=== PATIENT | male | born 1950 | race Caucasian/White ===

== ENCOUNTER → 2020-03-20 | Outpatient (CLI) | payer MEDICARE ==
[~2020-03-20] MED LIST: CHOL200074 PO; LOSA100T2 PO; MELA10TA PO; MULT-658 PO; PRIM50TA34 PO; SILD100T PO; SIMV40TA20 PO
[2020-03-20 13:33] LABS: ALANINE AMINOTRANSFERASE 21 U/L (12-78); ALBUMIN 3.8 g/dL (3.4-5.0); ANION GAP 2 mmol/L (5-15); CALCIUM 9.2 mg/dL (8.5-10.1); CHLORIDE 106 mmol/L (98-107); CREATININE 0.93 mg/dL (0.7-1.3)
[2020-03-20 13:35] LABS: ALKALINE PHOSPHATASE 107 U/L (45-117); BILIRUBIN,TOTAL 0.3 mg/dL (0.2-1.0); TOTAL PROTEIN 7.6 g/dL (6.4-8.2)
== END | disposition home or self-care (01) ==
LOC: STAR 11:34
PROVIDERS: ATTEND Surgery Vascular Surgery
DX: Z01.818 Encounter for other preprocedural examination (principal); K40.90 Unilateral inguinal hernia, without obstruction or gangrene, not specified as recurrent; R94.31 Abnormal electrocardiogram [ECG] [EKG]; Z20.828 Contact with and (suspected) exposure to other viral communicable diseases
CPT/HCPCS: 36415; 80053; 87635; 93005

== ENCOUNTER 2020-03-25 07:51 | Day surgery (SDC) | payer MEDICARE ==
[~2020-03-25] VITALS: Ht 185.4 cm; Wt 84.3 kg
[2020-03-25] MEDS ORDERED: CHLORHEXIDINE 15 ML UDC MM STA (08:57)
[2020-03-25] MEDS ORDERED: LACTATED RINGERS 1,000 ML IV SCH (08:57)
[2020-03-25] MEDS ORDERED: FENTANYL PF 100 MCG/2ML ONE (10:43)
[2020-03-25] MEDS ORDERED: KETOROLAC 30 MG/1 ML ONE ×3 (10:46→11:30)
[2020-03-25] MEDS ORDERED: HYDROmorphone 1 MG/ML, 1ML INJ IVPush PRN (11:00)
[2020-03-25] MEDS ORDERED: DIPHENHYDRAMINE 50 MG/ML, 1ML IVPush PRN (11:00)
[2020-03-25] MEDS ORDERED: hydrALAzine 20 MG/ML, 1ML IV PRN (11:00)
[2020-03-25] MEDS ORDERED: PROMETHAZINE 25 MG/ML, 1ML IVPush PRN (11:00)
[2020-03-25] MEDS ORDERED: FENTANYL PF 100 MCG/2ML IV PRN (11:00)
[2020-03-25] MEDS ORDERED: HALOPERIDOL 5 MG/ML IV PRN (11:00)
[2020-03-25] MEDS ORDERED: MEPERIDINE/PF 25MG/0.5ML IVPush PRN (11:00)
[2020-03-25] MEDS ORDERED: LABETALOL 5MG/ML, 20ML IV PRN (11:00)
[2020-03-25] MEDS ORDERED: HYDROcodone/APAP 7.5-325MG/15ML UDC PO PRN (11:00)
[2020-03-25] MEDS ORDERED: ROCURONIUM 10 MG/ML,10ML ONE (11:08)
[2020-03-25] MEDS ORDERED: PROPOFOL 10 MG/ML, 20ML ONE (11:08)
[2020-03-25] MEDS ORDERED: CEFAZOLIN 1,000 MG ONE (11:08)
[2020-03-25] MEDS ORDERED: DEXAMETHASONE 4 MG/ML, 1ML ONE (11:08)
[2020-03-25] MEDS ORDERED: ONDANSETRON 2MG/ML, 2ML ONE (11:08)
[2020-03-25] MEDS ORDERED: SUCCINYLCHOLINE 20 MG/ML, 10ML ONE (11:08)
[2020-03-25] MEDS ORDERED: BUPIVACAINE/PF 0.5% INFIL ONE (11:19)
[2020-03-25] MEDS ORDERED: BUPIVACAINE/PF 0.5% ONE (13:12)
[2020-03-25] MEDS ORDERED: EPINEPHRINE 1 MG/ML, 1ML ONE (13:12)
== END 2020-03-25 14:10 | disposition home or self-care (01) ==
LOC: OUT 07:51
PROVIDERS: ATTEND Surgery Vascular Surgery
DX: K40.90 Unilateral inguinal hernia, without obstruction or gangrene, not specified as recurrent (principal); I10 Essential (primary) hypertension; E78.5 Hyperlipidemia, unspecified; G25.0 Essential tremor; Z88.1 Allergy status to other antibiotic agents; Z91.048 Other nonmedicinal substance allergy status
CPT/HCPCS: 49505; C1781; J0171; J0330; J0690; J1100; J1885; J2405; J2704; J3010; J7120